=== PATIENT | female | born 1970 | race Caucasian/White ===

== ENCOUNTER → 2016-11-13 | Outpatient (CLI) | payer OTHER ==
[~2016-11-13] VITALS: Ht 182.9 cm; Wt 94.0 kg
[~2016-11-13] MED LIST: CENTRUM SILVER1 EAC4 PO; COLACE100 MG PO; IRON325 M1 PO; IRON325 MG PO; MEGACE20 MG PO; MOTRIN800 MG PO; NICOTINE PATCH1 EAC2 TD; NOHOMEMEDS; PAIN RELIEVER500 MG PO; PRILOSEC20 MG PO; ZOFRAN ODT4 MG PO
== END | disposition home or self-care (01) ==
LOC: AMB 11-02 12:30
PROC: 0DJD8ZZ Inspection of Lower Intestinal Tract, Via Natural or Artificial Opening Endoscopic (ICD-10-PCS; principal; 2016-11-13)
DX: D50.9 Iron deficiency anemia, unspecified (principal); K64.8 Other hemorrhoids; N80.0 Endometriosis of uterus; K21.9 Gastro-esophageal reflux disease without esophagitis
CPT/HCPCS: J2250; J3010

== ENCOUNTER 2016-12-09 05:27 | Day surgery (SDC) | payer OTHER ==
[~2016-12-09] VITALS: Ht 182.9 cm; Wt 95.3 kg
[~2016-12-09 05:27] MED LIST changes: +VALACYCLOVIR1000 MG PO
[2016-12-09 06:03] VITALS: BP 149/88
[2016-12-09] MEDS ORDERED: PERCOCET 5/31 TABLET PO (09:42)
[2016-12-09 11:35] VITALS: BP 167/86
[2016-12-09 13:08] VITALS: BP 155/86
== END 2016-12-09 13:18 | disposition home or self-care (01) ==
LOC: SDC 05:27
PROC: 0WUF4JZ Supplement Abdominal Wall with Synthetic Substitute, Percutaneous Endoscopic Approach (ICD-10-PCS; principal; 2016-12-09)
DX: K43.9 Ventral hernia without obstruction or gangrene (principal); K21.9 Gastro-esophageal reflux disease without esophagitis; R73.9 Hyperglycemia, unspecified; D50.9 Iron deficiency anemia, unspecified; F32.81 Premenstrual dysphoric disorder; I73.9 Peripheral vascular disease, unspecified; F17.200 Nicotine dependence, unspecified, uncomplicated; Z84.1 Family history of disorders of kidney and ureter; Z82.5 Family history of asthma and other chronic lower respiratory diseases; Z82.61 Family history of arthritis
CPT/HCPCS: C1727; C1781; J0131; J0690; J1100; J1170; J2250; J2405; J2710; J3010

== ENCOUNTER 2017-02-01 05:28 | Day surgery (SDC) | payer OTHER ==
[~2017-02-01] VITALS: Ht 182.9 cm; Wt 94.8 kg
[~2017-02-01 05:28] MED LIST changes: +FLAGYL500 MG PO; +PERCOCET 5/31 TABLET PO
[2017-02-01 06:05] VITALS: BP 138/76
[2017-02-01 11:38] VITALS: BP 137/73
[2017-02-01 16:00] VITALS: BP 136/68
[2017-02-01 19:12] VITALS: BP 123/58
[2017-02-01 23:17] VITALS: BP 129/68
[2017-02-02 03:18] VITALS: BP 143/80
[2017-02-02 07:10] LABS: HEMATOCRIT 33.3 % (36.0-46.0); MCH 27.3 PG (29.0-34.0); MCHC 29.7 G/DL (30.0-36.0); MCV 91.7 FL (83-99); MEAN PLAT.VOLUME 9.8 uM^3 (9.5-12.4); PLATELET COUNT 276 K/uL (156-360); RBC DIS.WIDTH-CV 15.4 % (11.8-14.6); RBC DIS.WIDTH-SD 51.3 % (39-53); RED BLOOD COUNT 3.63 M/uL (3.80-5.20)
[2017-02-02 07:17] LABS: WHITE BLOOD COUNT 10.3 K/uL (4.1-10.2)
[2017-02-02 07:36] VITALS: BP 131/88
[2017-02-02] MEDS ORDERED: HYDROCODON-ACE1 EAC7 PO (08:13)
[2017-02-02] MEDS ORDERED: NORCO 5/3251 TABLET PO (08:13)
[2017-02-02] MEDS ORDERED: REGLAN10 MG PO (08:13)
[2017-02-02] MEDS ORDERED: MOTRIN800 MG PO (08:13)
== END 2017-02-02 09:02 | disposition home or self-care (01) ==
LOC: SDC → 2SOUTH 10:26 → 2EAST 11:27 → SDC 13:07 → 2EAST 02-02 09:02
PROVIDERS: Obstetrics & Gynecology
DX: N92.0 Excessive and frequent menstruation with regular cycle (principal); D25.1 Intramural leiomyoma of uterus; N80.0 Endometriosis of uterus; D64.9 Anemia, unspecified; N83.8 Other noninflammatory disorders of ovary, fallopian tube and broad ligament
CPT/HCPCS: 85027; 88307; G0378; J0131; J0690; J1100; J1170; J2250; J2405; J2710; J3010; J7120

== ENCOUNTER → 2017-10-06 | Outpatient (CLI) | payer OTHER ==
[~2017-10-06] MED LIST changes: +HYDROCODON-ACE1 EAC7 PO; +NEXIUM40 MG PO; +NORCO 5/3251 TABLET PO; +REGLAN10 MG PO; +ZESTRIL10 MG PO; +ZOFRAN4 MG PO
== END | disposition home or self-care (01) ==
LOC: CDC 11:57
DX: Z01.810 Encounter for preprocedural cardiovascular examination (principal); K42.9 Umbilical hernia without obstruction or gangrene; R94.31 Abnormal electrocardiogram [ECG] [EKG]
CPT/HCPCS: 93000

== ENCOUNTER 2017-10-07 07:57 | Day surgery (SDC) | payer OTHER ==
[~2017-10-07] VITALS: Ht 182.9 cm; Wt 102.3 kg
[2017-10-07 09:07] VITALS: BP 139/79
[2017-10-07] MEDS ORDERED: COLACE100 MG PO (12:01)
[2017-10-07] MEDS ORDERED: PERCOCET 5/31 TABLET PO (12:01)
[2017-10-07 15:26] VITALS: BP 140/76
[2017-10-07 16:25] VITALS: BP 127/57
[2017-10-07 17:15] VITALS: BP 146/71
== END 2017-10-07 17:35 | disposition home or self-care (01) ==
LOC: SDC 07:57
PROC: 0WUF4JZ Supplement Abdominal Wall with Synthetic Substitute, Percutaneous Endoscopic Approach (ICD-10-PCS; principal; 2017-10-07)
DX: K42.9 Umbilical hernia without obstruction or gangrene (principal); K21.9 Gastro-esophageal reflux disease without esophagitis; I10 Essential (primary) hypertension; D50.9 Iron deficiency anemia, unspecified; R94.31 Abnormal electrocardiogram [ECG] [EKG]; F17.210 Nicotine dependence, cigarettes, uncomplicated
CPT/HCPCS: 88302; C1781; J0330; J0690; J2001; J2250; J2405; J3010; J3475; J7120; Q0175